=== PATIENT | female | born 1990 | race Caucasian/White ===

== ENCOUNTER 2018-07-09 00:25 | Emergency (ER) | payer MEDICAID ==
--- NOTE | 2018-07-09 02:27 | ED Physician Documentation ---
PD HPI SKIN - Stated complaint Stated Complaint: L ARM PX - Chief complaint Chief Complaint: Ext Problem - History obtained from History obtained from: Patient - History of Present Illness Timing - onset: Yesterday Timing - details: Abrupt onset, Still present in ED Location: [facility] (she resumed use of IV heroin and did shoot up yesterday into left forearm, with some extravasation and was sore. Today with redness and swelling around that site. 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 : None HEENT: None Psych: None Musculoskeletal: None Derm: None - Past Surgical History Past Surgical History: Yes General: Cholecystectomy - Present Medications Home Medications: Ambulatory Orders Medication Instructions Recorded Confirmed Doxycycline Hyclate 100 mg PO BID #20 capsule 07/09/18 Mupirocin 1 applic TP TID #15 g 07/09/18 - Allergies Allergies/Adverse Reactions: Allergies Allergy/AdvReac Type Severity Reaction Status Date / Time azithromycin [From Zithromax] AdvReac Unknown Verified 07/09/18 00:41 cefixime [From Suprax] AdvReac Unknown Verified 07/09/18 00:41 - Social History Does the pt smoke?: No Smoking Status: Never smoker Does the pt drink ETOH?: Yes Does the pt have substance abuse?: No - Immunizations Immunizations are current?: Yes - POLST Patient has POLST: No PD ED PE NORMAL - Vitals Vital signs reviewed: Yes - General General: Alert and oriented X 3, Well developed/nourished - Cardiac Cardiac: RRR, No murmur - Respiratory Respiratory: Clear bilaterally - Derm Derm: Normal color, Warm and dry - Extremities Extremities: Other (left forearm volar medial aspect with IVDU madden and some redness and swelling of skin. No fluctuance and no fluid collections seen on U/S bedside. The vein in the area has good compression and no signs of phlebitis. ) - Neuro Neuro: No motor deficit, No sensory deficit Results - Vitals Vitals: Oxygen O2 Source Room air PD MEDICAL DECISION MAKING - ED course Complexity details: reviewed results (bedside US not showing any fluid collections to drain. Tissue is inflammated c/w cellulitis.), considered differential, d/w patient Departure - Departure Disposition: 01 Home, Self Care Clinical Impression: Cellulitis of forearm, left, IVDU (intravenous drug user) Condition: Stable Record reviewed to determine appropriate education?: Yes Instructions: ED Infec Skin Cellulitis Follow-Up: Camelia Kinney ARNP [Primary Care Provider] - Prescriptions: Doxycycline Hyclate 100 mg PO BID #20 capsule Mupirocin 1 applic TP TID #15 g Comments: I would suggest warm towels to the area periodically to improve blood flow and help fight off potential infection and inflammation. Elevate and rest the hand often the next couple of days. Robbi wrap to it to reduce swelling. Naproxen or ibuprofen anti-inflammatories regularly. Add doxycycline antibiotic twice daily for a week for concern of infection. Recheck if not improved over the next several days to week. Return sooner if worsening. Discharge Date/Time: 07/09/18 03:06
[2018-07-09] MEDS ORDERED: DOXYCYCLINE 100 MG TABLET PO STA (02:39)
[2018-07-09] MEDS ORDERED: NAPROXEN 250 MG TABLET PO STA (02:39)
[2018-07-09 02:53] VITALS: BP 127/99
== END 2018-07-09 03:06 | disposition home or self-care (01) ==
LOC: ED 00:25
DX: L03.114 Cellulitis of left upper limb (principal); F19.90 Other psychoactive substance use, unspecified, uncomplicated
CPT/HCPCS: 99283; A9270